=== PATIENT | female | born 1975 | race Two or more races ===

== ENCOUNTER → 2018-08-26 | Outpatient (REF) | payer BC ==
[2018-08-26 16:26] LABS: BASO # 0.1 10^3/uL (0.0-0.2); BASO % 0.8 % (0.0-1.0); EOS # 0.2 10^3/uL (0.0-0.50); EOS % 1.7 % (0.0-3.0); HEMATOCRIT 39.8 % (36.0-47.0); HEMOGLOBIN 12.2 g/dl (12.0-15.5); LYMPH # 1.5 10^3/uL (1.5-4.5); LYMPH % 16.9 % (24.0-44.0); MEAN CORPUSCULAR HEMOGLOBIN 26.3 pg (27.0-33.0); MEAN CORPUSCULAR HGB CONC 30.7 g/dl (32.0-36.5); MONO # 0.7 10^3/uL (0.0-0.8); MONO % 7.6 % (0.0-5.0); NEUTROPHILS # 6.4 10^3/uL (1.8-7.7); NEUTROPHILS % 72.7 % (36.0-66.0); PLATELET COUNT, AUTOMATED 352 10^3/uL (150-450); RED BLOOD COUNT 4.63 10^6/uL (4.00-5.40); WHITE BLOOD COUNT 8.8 10^3/uL (4.0-10.0)
[2018-08-26 17:03] LABS: FREE T4 0.97 NG/DL (0.76-1.46); THYROID STIMULATING HORMONE 2.32 uIU/ML (0.358-3.740)
== END ==
LOC: M SFHCLERA 10:55
PROVIDERS: ATTEND Nurse Practitioner Family
DX: Z00.00 Encounter for general adult medical examination without abnormal findings (principal); Z86.39 Personal history of other endocrine, nutritional and metabolic disease

== ENCOUNTER → 2018-10-06 | Outpatient (CLI) | payer BC ==
--- NOTE | 2018-10-06 12:29 | REP ---
Clinical: Bilateral lower extremity varicosities . Technique: Sibley scale and color Doppler evaluation using linear high frequency transducer. Findings: Ultrasound examination of the right and left lower extremity deep venous structures from the common femoral vein to the popliteal vein demonstrates normal compressibility flow and wave patterns in response to respiration and augmentation. There is no evidence for deep venous thrombosis. Reflux evaluation of the right lower extremity demonstrates the patient to be status post greater saphenous vein ablation. Large perforating vessels extend from the posterior mid calf causing superficial varicosities. Mild reflux noted in the lesser saphenous vein only with standing which measures 4 mm diameter. Reflux evaluation of the left lower extremity demonstrates no deep or superficial reflux. Impression: No evidence for deep venous thrombosis. Evidence of prior right greater saphenous vein ablation. Very minimal reflux involving the right lesser saphenous vein on standing. Electronically Signed by Bryant Sun MD 10/06/2018 12:21 P
== END ==
LOC: M RAD 10:21
PROVIDERS: ATTEND Surgery Vascular Surgery
DX: I83.893 Varicose veins of bilateral lower extremities with other complications (principal)

== ENCOUNTER → 2020-11-27 | Outpatient (CLI) | payer BC ==
--- NOTE | 2020-11-27 15:13 | REP ---
INDICATION: CHEST PAIN LEFT SIDE COMPARISON: None. TECHNIQUE: PA/Lateral FINDINGS: Lungs: Clear, no infiltrate. Heart: Normal in size. Mediastinum: Mediastinal silhouette unremarkable. Pleural angles: Unremarkable.. Bones and soft tissues: Unremarkable. IMPRESSION: No acute pulmonary disease. <Electronically signed by Anil Sibley > 11/27/20 [id number]
== END ==
LOC: M RAD 14:43
PROVIDERS: ATTEND Physician Assistant
DX: R07.9 Chest pain, unspecified (principal)

== ENCOUNTER → 2020-12-23 | Outpatient (REF) | payer BC | LOC: M SFHCWAGY 19:17 | PROVIDERS: ATTEND Nurse Practitioner Women's Health | DX: Z12.4 Encounter for screening for malignant neoplasm of cervix (principal) | CPT/HCPCS: 87624; G0123 ==

== ENCOUNTER → 2021-01-06 | Outpatient (CLI) | payer BC ==
--- NOTE | 2021-01-08 12:08 | REP ---
INDICATION: AUB COMPARISON: 03/24/2016 TECHNIQUE: Transabdominal pelvic ultrasound followed by transvaginal examination for better evaluation of the endometrium and adnexa with color Doppler evaluation of the ovaries. FINDINGS: Bladder is unremarkable and measures 13.3 x 10.3 x 10.3 cm. Heterogeneous myomatous uterus measures 9.0 x 5.6 x 4.7 cm. Three discrete fibroids measure 4.3 cm approaching the fundus with submucosal component, 1.5 cm in a posterior submucosal mid uterine position, and right intramural/subserosal position measuring 2.8 cm maximal diameter each. The endometrial complex is incompletely evaluated due to heterogeneity and myomatous changes, but no obvious endocervical fluid is identified. Bilateral ovaries are normal in appearance and vascularity without evidence for torsion. Right ovary measures 2.0 x 1.5 x 1.8 cm; R I = 0.73. Left ovary measures 2.1 x 2.4 x 1.0 cm; R I = 0.48. No pelvic fluid or adnexal mass lesion IMPRESSION: Heterogeneous myomatous uterus. <Electronically signed by Bryant Sun > 01/08/21 [id number]
== END ==
LOC: M WHC 12:22
PROVIDERS: ATTEND Nurse Practitioner Women's Health
DX: N93.9 Abnormal uterine and vaginal bleeding, unspecified (principal); D25.0 Submucous leiomyoma of uterus; D25.1 Intramural leiomyoma of uterus; D25.2 Subserosal leiomyoma of uterus

== ENCOUNTER → 2021-05-21 | Outpatient (CLI) | payer BC, OTHER ==
[~2021-05-21] MED LIST: ECOT81TA5 PO; HYDR12.55 PO
== END ==
LOC: M LABSMTC 10:37
PROVIDERS: ATTEND Anesthesiology
DX: Z01.812 Encounter for preprocedural laboratory examination (principal); Z20.822 Contact with and (suspected) exposure to COVID-19

== ENCOUNTER 2021-05-26 09:56 | Day surgery (SDC) | payer OTHER ==
[2021-05-26] VITALS (7 sets, daily range): BP systolic 105–134; BP diastolic 57–78
[~2021-05-26] VITALS: Ht 182.9 cm; Wt 79.9 kg
[~2021-05-26 09:56] MED LIST changes: +LR 1,000 ML IV ONE; +LR 1,000 ML IV SCH; +ceFAZolin SOD 2 GM in IV 1 EA IV ONE
[2021-05-26] MEDS ORDERED: MIDAZOLAM INJ 2MG/2ML VIAL (J2250 PER 1MG) As Ordered ONE (10:06)
[2021-05-26] MEDS ORDERED: fentaNYL 100 MCG/2 ML INJECTION As Ordered ONE ×2 (10:07→14:56)
[2021-05-26] MEDS ORDERED: ONDANSETRON 4MG/2ML VIAL As Ordered ONE (10:07)
[2021-05-26] MEDS ORDERED: dexameTHASONE 4 MG/ML 1ML VIAL (J1100 PER 1MG) As Ordered ONE (10:07)
[2021-05-26] MEDS ORDERED: LIDOCAINE 2% 100MG/5ML SDV (FOR ANES.) As Ordered ONE (10:07)
[2021-05-26] MEDS ORDERED: ROCURONIUM BROMIDE 50 MG/5 ML VIAL As Ordered ONE ×2 (10:07→12:53)
[2021-05-26] MEDS ORDERED: SUGAMMADEX SODIUM 500 MG/5 ML VIAL (BRIDION) As Ordered ONE (10:07)
[2021-05-26] MEDS ORDERED: KETOROLAC 60MG 2ML VIAL As Ordered ONE (10:07)
[2021-05-26] MEDS ORDERED: propofoL 200 MG/20 ML VIAL As Ordered ONE (10:07)
[2021-05-26 10:36] LABS: HEMATOCRIT 43.5 % (36.0-47.0); HEMOGLOBIN 14.2 g/dl (12.0-15.5); MEAN CORPUSCULAR HEMOGLOBIN 29.8 pg (27.0-33.0); MEAN CORPUSCULAR HGB CONC 32.6 g/dl (32.0-36.5); MEAN CORPUSCULAR VOLUME 91.4 fl (80.0-96.0); PLATELET COUNT, AUTOMATED 347 10^3/uL (150-450); RED BLOOD COUNT 4.76 10^6/uL (4.00-5.40); WHITE BLOOD COUNT 6.7 10^3/uL (4.0-10.0)
[2021-05-26 10:55] LABS: BLOOD UREA NITROGEN 12 MG/DL (7-18); CALCIUM LEVEL 9.2 MG/DL (8.5-10.1); CARBON DIOXIDE LEVEL 28 MEQ/L (21-32); CHLORIDE LEVEL 108 MEQ/L (98-107); CREATININE FOR GFR 0.85 MG/DL (0.55-1.30); GLOMERULAR FILTRATION RATE > 60.0 (>58); GLUCOSE, FASTING 101 MG/DL (70-100); POTASSIUM SERUM 3.9 MEQ/L (3.5-5.1); SODIUM LEVEL 142 MEQ/L (136-145)
[2021-05-26] MEDS ORDERED: BUPIVACAINE HCL 0.25% 30ML VIAL As Ordered ONE (11:57)
[2021-05-26] MEDS ORDERED: ACETAMINOPHEN 1000MG 100ML IV BTL (OFIRMEV) (J0131 PER 10MG) As Ordered ONE (12:15)
[2021-05-26] MEDS ORDERED: BUPIVACAINE HCL 0.25% 10ML VIAL As Ordered ONE (12:22)
[2021-05-26] MEDS ORDERED: VASOPRESSIN INJ 20 UNITS/ML VIAL As Ordered ONE (12:22)
[2021-05-26] MEDS ORDERED: GLYCOPYRROLATE INJ 0.2 MG/ML 2 ML VIAL As Ordered ONE (14:16)
[2021-05-26] MEDS: fentaNYL 100 MCG/2 ML INJECTION IV PRN ×3 (14:58→15:08)
[2021-05-26] MEDS ORDERED: MEPERIDINE INJ 25 MG/ML VIAL (J2175) As Ordered ONE (15:07)
[2021-05-26] MEDS ORDERED: ONDANSETRON 4MG/2ML VIAL IV PRN ×2 (15:10→15:15)
[2021-05-26] MEDS: MEPERIDINE INJ 25 MG/ML VIAL (J2175) IV PRN ×2 (15:10→15:15)
[2021-05-26] MEDS ORDERED: PERCOCET 5MG/325MG TAB PO PRN ×2 (15:10→15:15)
[2021-05-26] MEDS ORDERED: METOCLOPRAMIDE INJ 10MG/2ML VIAL (J2765 PER 1) IV PRN (15:10)
[2021-05-26] MEDS ORDERED: LR 1,000 ML IV SCH ×2 (15:10→15:15)
[2021-05-26] MEDS ORDERED: IBUP-1022 PO (15:11)
[2021-05-26] MEDS ORDERED: OXYC1TAB23 PO (15:12)
[2021-05-26] MEDS: DOCUSATE SODIUM 100MG CAPSULE PO SCH (21:09)
[2021-05-27] MEDS: KETOROLAC 30 MG/ML 1ML VIAL IV PRN ×2 (00:33→08:58)
[2021-05-27 02:08] VITALS: BP 113/62
[2021-05-27 06:25] VITALS: BP 135/74
[2021-05-27] MEDS: DOCUSATE SODIUM 100MG CAPSULE PO SCH (08:35)
[2021-05-27 09:55] VITALS: BP 125/68
== END 2021-05-27 10:45 | disposition home or self-care (01) ==
LOC: M SDC 09:56 → M OBS 16:10 → M SDC 05-27 10:45
PROVIDERS: ATTEND Specialist
DX: N92.6 Irregular menstruation, unspecified (principal); D25.9 Leiomyoma of uterus, unspecified; N81.10 Cystocele, unspecified; I10 Essential (primary) hypertension; Z79.899 Other long term (current) drug therapy
CPT/HCPCS: 36415; 57240; 57283; 58571; 80048; 81025; 85027; 86850; 86900; 86901; 88302; 88307; 93005; 96374; 96376; J0131; J0690; J1100; J1885; J2175; J2250; J2405; J3010; S2900